=== PATIENT | male | born 1960 | race Caucasian/White ===

== ENCOUNTER → 2017-04-09 | Outpatient (CLI) | payer SELFPAY ==
[~2017-04-09] MED LIST: AMB10 PO; AMLO-110 PO; ATEN-171 PO; CLX20 PO; ENOX40IN SQ; FRRG PO; HYDR-5688 PO; LISI40TA PO; MULT-506 PO; PRLSR20 PO; SIMV20TA2 PO
--- NOTE | 2017-04-09 08:36 | Discharge Instructions ---
Discharge Instructions Procedure Procedure Date: Apr 09, 2017. Reason for visit: Left Neck Mass "Dr Zaragoza". Discharge Discharge Date: Apr 09, 2017. Discharge Diagnosis: s/p left neck mass biopsy Instructions Activity Recommendations: No limitations Return to School/Work: no limitations Recommended Home Diet: No Limitations Provider Instructions: ACTIVITY RECOMMENDATIONS: * Rest today. * Resume regular activity in one day. MEDICATIONS: * May take Tylenol or Ibuprofen as needed for pain. DIET: * Resume previous diet. SPECIAL CARE INSTRUCTIONS: Call your doctor if: * Temperature above 101 degrees F. * Pain not relieved by pain medicine ordered. * Increased drainage or redness from incision. * Notify your doctor with any questions or concerns. Call your doctor or go to the nearest Emergency Department if you experience: * Increased chest pain or shortness of breath. FOLLOW UP VISIT: Follow-up with Referring Physician as scheduled. Allergies Coded Allergies: Penicillins (Verified Allergy, Severe, ANAPHYLAXIS, HIVES, 06/02/14) PT HAS NOT HAD SINCE HE WAS AN INFANT Lesia Mcmullen Recommendations: Call your doctor if: * Temperature above 101 degrees * Pain not relieved by pain medicine ordered * There is increased drainage or redness from any incision * You have any unanswered questions or concerns. Your Doctors Instructions noted above were prepared by provider Isacc Zaragoza. Patient Signature Section: Patient Instructions Signature Page Mitch Moore Patient (or Guardian) Signature/Date: I have read and understand the instructions given to me by my caregivers. Caregiver/RN/Doctor Signature/Date: The above-named patient and/or guardian has received patient instructions on this date. + Original Patient Signature Page (only) stays with chart. Please make copy for patient.
--- NOTE | 2017-04-09 09:00 | DIAGNOSTIC IMAGING REPORT ---
ULTRASOUND GUIDED FINE NEEDLE ASPIRATION OF LEFT NECK MASS CLINICAL HISTORY: Left neck mass. COMPARISON STUDY: Neck CT March 21, 2017. PROCEDURE: Sonography of the left neck demonstrated a 3 cm x 2 cm mass arising from the inferior aspect of the left parotid gland. Mass was mixed cystic and solid. This represents the palpable abnormality and was targeted for fine needle aspiration. The procedure, risks and benefits were discussed with the patient and informed written consent was obtained. The procedure was performed by Dr. Zaragoza following a timeout. Skin was prepped and draped in sterile fashion and local anesthesia was achieved with 1% lidocaine. Under direct ultrasound guidance, 2 25-gauge fine needle aspirations were performed. Patient tolerated the procedure well and no immediate complications were evident. Samples were deemed preliminarily adequate by pathology. IMPRESSION: Ultrasound guided fine needle aspiration of the 3 cm x 2 cm left neck mass which arises from the inferior left parotid gland. Electronically signed by: Isacc Zaragoza M.D. 04/09/2017 8:59 AM Dictated Date/Time: 04/09/2017 8:56 AM
== END | disposition home or self-care (01) ==
LOC: C.ULTR 07:32
PROVIDERS: ATTEND Physician Assistant
DX: D11.9 Benign neoplasm of major salivary gland, unspecified (principal)

== ENCOUNTER → 2017-04-20 | Outpatient (CLI) | payer SELFPAY ==
--- NOTE | 2017-04-20 13:41 | DIAGNOSTIC IMAGING REPORT ---
ULTRASOUND GUIDED FINE NEEDLE ASPIRATION OF 2 RIGHT PAROTID GLAND LESIONS CLINICAL HISTORY: Right parotid masses. COMPARISON STUDY: CT of the neck March 21, 2017. PROCEDURE: Sonography of the right parotid gland demonstrated 2 hypoechoic circumscribed lesions. The larger lesion measured 1.3 cm. The smaller lesion measured 1.2 cm. One was indicated as a superior lesion while the other was and annotated as an inferior lesion. The procedure, risks and benefits were discussed with the patient and informed written consent was obtained. The procedure was performed by Dr. Zaragoza following a timeout. Skin was prepped and draped in sterile fashion and local anesthesia was achieved with 1% lidocaine. Under direct ultrasound guidance, 2 25-gauge fine needle aspirations were performed within each parotid lesion for a total 4 passes. The patient tolerated the procedure well and no immediate complications were evident. IMPRESSION: Ultrasound guided fine needle aspiration of 2 right parotid gland lesions. Electronically signed by: Isacc Zaragoza M.D. 04/20/2017 1:40 PM Dictated Date/Time: 04/20/2017 1:34 PM
[2017-04-26 11:46] LABS: NEO FLOW LYMPH/LEUK STND SEE NEO MISC
== END | disposition home or self-care (01) ==
LOC: C.ULTR 12:10
PROVIDERS: ATTEND Physician Assistant
DX: D49.0 Neoplasm of unspecified behavior of digestive system (principal); K11.9 Disease of salivary gland, unspecified; D11.9 Benign neoplasm of major salivary gland, unspecified